=== PATIENT | female | born 1950 | race Caucasian/White ===

== ENCOUNTER → 2016-09-05 | Outpatient (CLI) | payer BC, MEDICARE ==
[~2016-09-05] MED LIST: BETASERON; CADUET 10 MG/201 TAB PO; COLRITE; DILANTIN PO; KLONOPIN PO; LORTAB 7.5-5001 TAB PO; MULTIVITAMIN1 UDCAP PO; NAPROXEN PO; NEURONTIN PO; PAXIL PO; PHENERGAN25 MG PO; PROAIR HFA8.5 GM IH; RAMIPRIL5 MG PO; [UNRECOGNIZED DRUG - OTHER]
--- NOTE | ~2016-09-05 | CR63 ---
[facility] A Service of [facility] RADIOLOGY TEXT RESULTS PATIENT: AMADA JOSEPH LOCATION: [facility] : 52 UNIT #: [id number] AGE: [address]: Rajni Johnson MD SEX: F ORDER DR: [id number] [place] [id number] O MR#: [id number] Acc #: [id number] NAME: AMADA JOSEPH : 1950 SEX: F STUDY DATE/TIME: 09/05/2016 16:37 UNIT: [facility] ROOM: STUDY DESCRIPTION: CR Chest 2 View Attending Physician: Rajni Johnson M.D. Referring Physician: Rajni Johnson M.D. Ordering Physician: Rajni Johnson M.D. Primary Care Physician: Rajni Johnson M.D. MEDICAL IMAGING REPORT This report is preliminary unless electronic signature is present. EXAM Two-view chest INDICATIONS Cough for the past 2 weeks. PROCEDURE Frontal and lateral views of chest. COMPARISON 06/23/2016 FINDINGS Heart size stable. No new dense consolidation. No pleural fluid. No pneumothorax. IMPRESSION No new dense consolidation. Dictated by... Venkatesh Beckwith M.D. THIS IS AN ELECTRONICALLY VERIFIED REPORT Venkatesh Beckwith M.D. at 09/06/2016 7:36 AM EED/devonte TD: 09/05/2016 23:26 JOB #: [id number] MEDICAL IMAGING REPORT Page 1 of 1
== END | disposition home or self-care (01) ==
LOC: SRAD 16:23
DX: R05 Cough (principal)
CPT/HCPCS: 71020